=== PATIENT | female | born 1985 | race Caucasian/White ===

== ENCOUNTER 2018-12-05 05:03 | Inpatient (IN) | payer BC ==
--- NOTE | 2018-12-04 12:39 | PCM.LDHP ---
L&D History of Present Illness - General Date of Service: 12/04/18 Admit Problem/Dx: Admission Diagnosis/Problem Admission Diagnosis/Problem 12/04/18 12:32 33-year-old 7 para 3033 white female admitted at 39-0/7 weeks gestational age and MARYJANE of 12/12/2018 for elective repeat section. History of small for gestational age baby Source of Information: Patient History Limitations: Reports: No Limitations - History of Present Illness Introduction:: Allie is a 33-year-old 7 para 3033 white female with an MARYJANE of 2018 is based upon ultrasound on 05/15/2018 at 9-6/7 weeks. Results on 05/01/2018 which also correlated with these dates. She's had multiple ultrasounds which showed that the baby is small for gestational age. She is scheduled for C- section repeat on 12/05/2018. Menses result of in vitro fertilization done in [place]. Seen on a regular basis for early starting at 7 weeks and continuing until present. Her weight gain has been from 128.2 pounds up to approximately 162 pounds. Her vital signs of in stable. Fundal height growth has been lagging somewhat from average. Was given betamethasone on 10/05/2018 in case early delivery was then indicated. She declined genetic testing. Her [place] depression screening score was 0 and scale 30 on 07/26/2018. She has history of hypothyroidism and is presently on medications including levothyroxine 88 g per day. She is clinically euthyroid. She has had weekly BPP's since approximately mid September and these have been reassuring. Last BPP and umbilical cord SD ratio was mildly increased. Laboratory testing in shows a blood type which is O+. At present is negative. First hemoglobin was 11.8 g deciliter and platelets were 373, 000. Potassium was negative. She is rubella immune. Urine culture was negative. TSH at that time was 1.2 4-0 Vicryl as per milliliter. One hour GTT was 98. Second trimester hemoglobin is 10.5 g/dL and platelets were 272,000. Allergies: Ceclor which causes a rash. Medications: 1. Levothyroxine sodium 88 g per day 2. vitamins 1 daily. Past surgical history: 1. Infertility requiring in vitro fertilization 2. Tubal ligation 2009 3. 2016 Past medical history: 1. Hypothyroidism on replacement Family history father has severe scoliosis with vivienne and pins in his back. Mother is alive and well. Father also has hypertension. 2 brothers 1 with hypertension 1 with cerebral palsy. Maternal grandmother is , COPD. Maternal grandfather secondary to liver cancer. Paternal grandmother is alive and well. Paternal grandfather is causes unknown. No anesthesia, bleeding, blood clotting problems noted in the family. Social history: Patient is . She is a homemaker. She and her Vito lived in [place]. She does not use any significant most alcohol, drugs or tobacco. Review of systems: In general patient has no complaints. Baby has been very active. Skin: Negative Lungs: No infectious symptoms or shortness of breath Cardiovascular: No chest pain or exercise intolerance Breasts: No lumps, changes in size, pain, dimpling, discharge or axillary or supraclavicular concerns. GI: Negative : Negative Musculoskeletal: Negative Neurological: Negative - Related Data Allergies/Adverse Reactions: Allergies Allergy/AdvReac Type Severity Reaction Status Date / Time cefaclor [From [facility]] Allergy Rash Verified 04/08/16 19:42 Past Medical History - Past Health History Medical/Surgical History: Denies Medical/Surgical History HERB GROWER History: Reports: , Spontaneous Other OB/BYN History: Tubal in 2009 Social & Family History - Family History Family Medical History: Noncontributory H&P Review of Systems - Review of Systems: Review Of Systems: See Below L&D Exam - Exam Exam: See Below - Patient Data Lab Results Last 24 hrs: Laboratory Results - last 24 hr 12/04/18 12/04/18 Range/Units 10:21 10:21 WBC 8.54 (3.98-10.04) K/mm3 RBC 4.32 (3.98-5.22) M/mm3 Hgb 12.0 (11.2-15.7) gm/L Hct 36.8 (34.1-44.9) % MCV 85.2 (79.4-94.8) fl MCH 27.8 (25.6-32.2) pg MCHC 32.6 (32.2-35.5) g/dl RDW Std Deviation 47.3 H (36.4-46.3) fL Plt Count 171 L (182-369) K/mm3 MPV 11.1 (9.4-12.3) fl Neut % (Auto) 70.4 (34.0-71.1) % Lymph % (Auto) 19.7 (19.3-51.7) % Harney % (Auto) 8.7 (4.7-12.5) % Eos % (Auto) 0.9 (0.7-5.8) Baso % (Auto) 0.1 (0.1-1.2) % Neut # (Auto) 6.01 (1.56-6.13) K/mm3 Lymph # (Auto) 1.68 (1.18-3.74) K/mm3 Harney # (Auto) 0.74 H (0.24-0.36) K/mm3 Eos # (Auto) 0.08 (0.04-0.36) K/mm3 Baso # (Auto) 0.01 (0.01-0.08) K/mm3 Blood Type O POSITIVE Gel Antibody Screen Negative Result Diagrams: 12/04/18 10:21 Problem List Initiated/Reviewed/Updated: Yes Assessment/Plan Comment:: 1. 39-0/7 week interim upon admission for elective repeat certain section. 2. History of small for gestational age baby with testing being normal to this point 3. Rubella titer shows immunity. 4. Patient had betamethasone early in [id number]/20/2018 5. Patient plans to breast-feed. 6. Hypothyroidism, on replacement and clinically euthyroid 7. Patient declined genetic testing Plan: 1. Repeat lower uterine segment transverse section through Pfannenstiel skin incision under spinal block scheduled for 12/05/2018 at 0800 hrs. Procedure, risks, benefits, and his care including attempt at all discussed with patient. She appears understand, wishes to proceed and signed consent. 2. DVT prophylaxis with SCDs 3. Infection prophylaxis with Ancef 2 g IV preop. Patient given a test dose prior to this her only retraction was a rash from Ceclor which occurred when she was a baby. 4. Preoperative evaluation consistent CBC, type and screen. 5. Support breast feeding decision
[~2018-12-05 05:03] MED LIST: Gentamicin 40 MG/ML 2 ML Vial IV SCH; Sodium Chloride 0.9% 10 ML Syringe FLUSH PRN
[2018-12-05] MEDS: Lactated Ringers 1,000 ML IV SCH ×2 (05:37→06:29)
[2018-12-05] MEDS ORDERED: Gentamicin 360 MG in Sodium Chloride 0.9% 100 ML IV ONE ×2 (05:45→06:30)
[2018-12-05] MEDS: Clindamycin Phosphate 900 MG in Sodium Chloride 0.9% 100 ML IV ONE (06:26)
[2018-12-05] MEDS ORDERED: Metoclopramide 10 MG/2 ML SDV IVPUSH ONE (06:30)
[2018-12-05] MEDS ORDERED: Bupivacaine 0.5% 30 ML SDV ONE (06:47)
[2018-12-05] MEDS ORDERED: Phenylephrine 1% 10 MG/ML SDV ONE (07:13)
[2018-12-05] MEDS ORDERED: ceFAZolin 1 GM Vial ONE (07:13)
[2018-12-05] MEDS ORDERED: Morphine PF 10 MG/10 ML SDV ONE (07:13)
[2018-12-05] MEDS: Citric Acid/Sodium Citrate Solution 30 ML Cup PO ONE (07:29)
[2018-12-05] MEDS ORDERED: Oxytocin 10 Units/1 ML SDV ONE (07:57)
[2018-12-05] MEDS ORDERED: Ketorolac 30 MG/ML SDV ONE (08:03)
[2018-12-05] MEDS ORDERED: Lactated Ringers 1,000 ML ONE (08:26)
[2018-12-05] MEDS ORDERED: diphenhydrAMINE 50 MG/ML SDV IVPUSH PRN ×2 (08:37→09:38)
--- NOTE | 2018-12-05 08:41 | PCM.PREANE ---
Preanesthetic Assessment - Anesthesia/Transfusion/Family Hx Anesthesia History: Prior Anesthesia Without Reaction Family History of Anesthesia Reaction: No Transfusion History: No Prior Transfusion(s) - Review of Systems General: No Symptoms Pulmonary: No Symptoms Cardiovascular: No Symptoms Gastrointestinal: No Symptoms Neurological: No Symptoms Other: Reports: None - Physical Assessment NPO Status Date: 12/04/18 NPO Status Time: 22:30 Pulse: 89 O2 Sat by Pulse Oximetry: 96 Respiratory Rate: 16 Blood Pressure: 119/76 Temperature: 36.7 C Vital Signs: Last Vital Signs Temp 36.7 C 12/05/18 05:20 Pulse 89 12/05/18 05:20 Resp 16 12/05/18 05:20 BP 119/76 12/05/18 05:20 Pulse Ox 96 12/05/18 05:20 Height: 1.57 m Weight: 73.709 kg ASA Class: 2 Mental Status: Alert & Oriented x3 Airway Class: Mallampati = 1 Dentition: Reports: Normal Dentition Thyro-Mental Finger Breadths: 3 Mouth Opening Finger Breadths: 3 ROM/Head Extension: Full Lungs: Clear to Auscultation, Normal Respiratory Effort Cardiovascular: Regular Rate, Regular Rhythm - Lab Values: Laboratory Last Values WBC 8.54 K/mm3 (3.98-10.04) 12/04/18 10:21 RBC 4.32 M/mm3 (3.98-5.22) 12/04/18 10:21 Hgb 12.0 gm/L (11.2-15.7) 12/04/18 10:21 Hct 36.8 % (34.1-44.9) 12/04/18 10:21 MCV 85.2 fl (79.4-94.8) 12/04/18 10:21 MCH 27.8 pg (25.6-32.2) 12/04/18 10:21 MCHC 32.6 g/dl (32.2-35.5) 12/04/18 10:21 RDW Std Deviation 47.3 fL (36.4-46.3) H 12/04/18 10:21 Plt Count 171 K/mm3 (182-369) L 12/04/18 10:21 MPV 11.1 fl (9.4-12.3) 12/04/18 10:21 Neut % (Auto) 70.4 % (34.0-71.1) 12/04/18 10:21 Lymph % (Auto) 19.7 % (19.3-51.7) 12/04/18 10:21 Blount % (Auto) 8.7 % (4.7-12.5) 12/04/18 10:21 Eos % (Auto) 0.9 (0.7-5.8) 12/04/18 10:21 Baso % (Auto) 0.1 % (0.1-1.2) 12/04/18 10:21 Neut # (Auto) 6.01 K/mm3 (1.56-6.13) 12/04/18 10:21 Lymph # (Auto) 1.68 K/mm3 (1.18-3.74) 12/04/18 10:21 Blount # (Auto) 0.74 K/mm3 (0.24-0.36) H 12/04/18 10:21 Eos # (Auto) 0.08 K/mm3 (0.04-0.36) 12/04/18 10:21 Baso # (Auto) 0.01 K/mm3 (0.01-0.08) 12/04/18 10:21 Blood Type O POSITIVE 12/04/18 10:21 Gel Antibody Screen Negative 12/04/18 10:21 - Allergies Allergies/Adverse Reactions: Allergies Allergy/AdvReac Type Severity Reaction Status Date / Time cefaclor [From [facility]] Allergy Rash Verified 12/05/18 04:21 - Anesthesia Plan Pre-Op Medication Ordered: None - Acknowledgements Anesthesia Type Planned: Spinal Pt an Appropriate Candidate for the Planned Anesthesia: Yes Alternatives and Risks of Anesthesia Discussed w Pt/Guardian: Yes Pt/Guardian Understands and Agrees with Anesthesia Plan: Yes PreAnesthesia Questionnaire - Past Health History Medical/Surgical History: Denies Medical/Surgical History Gastrointestinal History: Reports: GERD [employer] History: Reports: , Spontaneous Other OB/BYN History: Tubal in 2009 Psychiatric History: Reports: Depression Endocrine/Metabolic History: Reports: Hypothyroidism - Past Surgical History Female Surgical History: Reports: Section, Tubal Ligation Endocrine Surgical History: Reports: None - SUBSTANCE USE Smoking Status *Q: Never Smoker Tobacco Use Within Last Twelve Months: No Second Hand Smoke Exposure: No Recreational Drug Use History: No - HOME MEDS Home Medications: Home Meds Levothyroxine Sodium 88 mcg PO DAILY 12/05/18 [History] Pnv No.122/Iron/Folic Acid [ Multi Tablet] 1 each PO DAILY 12/05/18 [ History] - CURRENT (IN HOUSE) MEDS Current Meds: Current Medications Diphenhydramine HCl (Benadryl) 25 mg IVPUSH Q6H PRN PRN Reason: Itching Lactated Ringer's (Ringers, Lactated) 1,000 mls @ 125 mls/hr IV ASDIRECTED [facility] Last Admin: 12/05/18 06:29 Dose: 125 mls/hr Oxytocin 20 unit/ Lactated (Ringer's) 1,002 mls @ 999 mls/hr IV ASDIRECTED [facility] Levothyroxine Sodium (Synthroid) 88 mcg PO DAILY [facility] Non-Formulary Medication (Pnv No.122/Iron/Folic Acid [ Multi Tablet]) 1 each PO DAILY [facility] Sodium Chloride (Saline Flush) 10 ml FLUSH ASDIRECTED PRN PRN Reason: Keep Vein Open Discontinued Medications Bupivacaine HCl (Marcaine 0.5%) Confirm Administered Dose 30 ml .ROUTE .STK-MED ONE Stop: 12/05/18 06:48 Cefazolin Sodium (Ancef) Confirm Administered Dose 2 gm .ROUTE .STK-MED ONE Stop: 12/05/18 07:14 Citric Acid/Sodium Citrate (Bicitra Solution) 30 ml PO ONETIME ONE Stop: 12/05/18 06:31 Last Admin: 12/05/18 07:29 Dose: 30 ml Gentamicin Sulfate (Gentamicin) 0 mg IV .Pharmacy to Dose [facility] Clindamycin Phosphate 900 mg/ (Sodium Chloride) 106 mls @ 100 mls/hr IV ONETIME ONE Stop: 12/05/18 08:03 Last Admin: 12/05/18 06:26 Dose: 100 mls/hr Gentamicin Sulfate 360 mg/ (Sodium Chloride) 109 mls @ 218 mls/hr IV ONETIME ONE Stop: 12/05/18 06:59 Last Admin: 12/05/18 07:27 Dose: 218 mls/hr Lactated Ringer's (Ringers, Lactated) Confirm Administered Dose 1,000 mls @ as directed .ROUTE .STK-MED ONE Stop: 12/05/18 08:27 Ketorolac Tromethamine (Toradol) Confirm Administered Dose 30 mg .ROUTE .STK- MED ONE Stop: 12/05/18 08:04 Metoclopramide HCl (Reglan) 10 mg IVPUSH ONETIME ONE Stop: 12/05/18 06:31 Last Admin: 12/05/18 07:24 Dose: 10 mg Morphine Sulfate (Duramorph Pf) Confirm Administered Dose 10 mg .ROUTE .STK-MED ONE Stop: 12/05/18 07:14 Oxytocin (Pitocin) Confirm Administered Dose 10 unit .ROUTE .STK-MED ONE Stop: 12/05/18 07:58 Phenylephrine HCl (Damian-Synephrine) Confirm Administered Dose 10 mg .ROUTE .STK- MED ONE Stop: 12/05/18 07:14
--- NOTE | 2018-12-05 08:42 | PCM.POSTAN ---
POST ANESTHESIA ASSESSMENT - MENTAL STATUS Mental Status: Alert, Oriented - VITAL SIGNS Pulse Rate: 91 SaO2: 100 Resp Rate: 19 Blood Pressure: 131/114 Temperature: 36.6 C - RESPIRATORY Respiratory Status: Respiratory Rate WNL, Airway Patent, O2 Saturation Stable - CARDIOVASCULAR CV Status: Pulse Rate WNL, Blood Pressure Stable - GASTROINTESTINAL GI Status: No Symptoms - PAIN Pain Score: 0 - POST OP HYDRATION Hydration Status: Adequate & Stable - OBSERVATIONS Free Text/Narrative:: no anesthesia complications noted
--- NOTE | 2018-12-05 08:44 | PCM.OPNOTE ---
- General Post-Op/Procedure Note Date of Surgery/Procedure: 12/05/18 Operative Procedure(s): Repeat lower uterine segment transversely in section through Turner skin incision, revision of skin scar. Findings: Uterus tubes and ovaries consistent with term . Baby in vertex presentation. Amniotic fluid is clear. There is more 0757 hrs. scores 8 and 9. Weight was 6 lbs. 3 oz. (2800 g). Female infant. Pre Op Diagnosis: 1. 39-0/7 week intrauterine , history of previous section with desire for repeat section Post-Op Diagnosis: Same with delivery of viable, childs, female with Apgars of 8 and 9, weight 6 lbs. 3 oz. (2800 g) at 0757 hrs. on 12/05/2018. Anesthesia Technique: Epidural Other Anesthesia Type: Marcaine 0.5%20 mL totallocal Primary Surgeon: Anthony Johnson Secondary Surgeon: Suleman Espinal Anesthesia Provider: Eliazar Nguyen Tenter Feeder: Micheal Brink Reason Tenter Feeder Was Necessary: Retraction, assistance, patient safety and quality of care Role of Tenter Feeder: Same Fluid Replacement, Intraop: 2,600 Output, Urine Amount: 30 EBL in mLs: 700 Drain/Tube Comments:: Indwelling bladder catheter Complications: None Condition: Good Free Text/Narrative:: Surgery duration: 29 minutes Procedure: The patient is appropriately consented. Patient was transferred to the room and placed in a sitting position. Spinal anesthesia was administered. After confirmation of adequate anesthesia patient was placed in a supine position with a wedge under her right side to facilitate left lateral positioning. The patient was prepped and draped in usual fashion after Cox catheter was already placed . The anesthetic was checked and found to be adequate. 20 mL of Marcaine 0.5% was injected locally in the Pfannenstiel incision site. The Pfannenstiel skin incision was then made directly taking out the old scar and carried down through skin, subcutaneous and fascial layers. The fascia was then undermined superiorly and inferiorly to allow for adequate operating room. The recti muscles midline and preperitoneal fat was bluntly dissected. Peritoneal cavity was entered longitudinally. The vesicouterine peritoneum was then incised transversely and bladder flap was developed. Myometrium was incised transversely to the level of the amniotic sac. This incision was extended bilaterally in a blunt fashion. The amniotic sac was then ruptured resulting in clear amniotic fluid. A hand is placed in the low uterine segment and the baby's head was brought forth through the incision. The baby was completely delivered using fundal pressure in a routine fashion. The nose and mouth were bulb suctioned. Baby's cord was clamped x2 cut and baby was handed off to attending immunology specialist Dr Springer. Placenta was expressed after cord blood was obtained. Uterus was then exteriorized to allow for easier closure. The cervix was assessed and found to be dilated adequately to allow egress of blood. The uterus was closed in 2 layers. The first layer a running locked suture of 0 Monocryl, the second layer a running locked vertical mattress suture of 0 Monocryl. Bhzwdu-fa-suumb suture was placed at mid incision to control 1 bleeder. Hemostasis confirmed at this time. Sponge instrument needle counts are correct. The uterus was returned to the abdominal cavity and lateral gutters were cleared of blood. Once again sponge needle counts are correct. The anterior abdominal wall was closed with a #1 PDS suture from angle to angle. The subcutaneous area was found to be free of any bleeders. interrupted sutures of 3-0 Monocryl were used to reapproximate the subcutaneous layer.Skin was closed with a running subcuticular stitch of 3-0 Monocryl in a vertical mattress suture fashion using a Eliseo needle. Prineo mesh /glue was then applied to further approximate the incision. It should be noted that patient received clindamycin and gentamicin were given preoperatively for infection prophylaxis and had Pitocin infused after delivery of the placenta to facilitate uterine contraction. She also had sequential compression stockings in place for DVT prophylaxis. Patient was discharged from the operating room in satisfactory condition.
[2018-12-05] MEDS ORDERED: Meperidine 50 MG/ML Vial IVPUSH SCH (08:45)
[2018-12-05] MEDS ORDERED: Naloxone 0.4 MG/ML SDV IVPUSH PRN (09:38)
[2018-12-05] MEDS ORDERED: ePHEDrine 50 MG/ML SDV IVPUSH PRN (09:38)
[2018-12-05] MEDS ORDERED: Lanolin 100% Cream 7 GM Tube TOP PRN (09:38)
[2018-12-05] MEDS: Dextrose 5%-Lactated Ringers 1,000 ML IV SCH ×2 (10:15→13:30)
[2018-12-05] MEDS ORDERED: Sodium Chloride 0.9% 1,000 ML IV ONE ×2 (10:52→16:08)
[2018-12-05] MEDS ORDERED: Sodium Chloride 0.9% 1,000 ML ONE (10:55)
[2018-12-05] MEDS ORDERED: Dextrose 5%-Lactated Ringers 1,000 ML ONE (11:32)
--- NOTE | 2018-12-05 12:57 | US ---
Limited abdominal ultrasound: Multiple screening images were obtained of the 4 quadrants of the abdomen looking for free fluid. Small amount of fluid is seen within the right upper quadrant measuring 7.1 x 2.1 x 3.3 cm. Smaller collection of fluid is seen within the left upper quadrant measuring 3.2 x 2.0 x 0.7 cm. No other focal fluid collections are seen. Impression: 1. Nonspecific fluid collections within both upper quadrants as noted above. Diagnostic code #3
[2018-12-05] MEDS: Ibuprofen 800 MG Tab PO SCH (16:34)
[2018-12-05] MEDS ORDERED: Dextrose 5%-Lactated Ringers 1,000 ML IV SCH (17:00)
[2018-12-05] MEDS ORDERED: Sodium Chloride 0.9% 500 ML ONE (19:39)
[2018-12-05] MEDS ORDERED: Tranexamic Acid 1,000 MG in Sodium Chloride 0.9% 100 ML IV ONE (20:30)
--- NOTE | 2018-12-05 20:38 | PCM.SN ---
- Free Text/Narrative Note: The patient's clinical condition has been monitored throughout the afternoon and evening. I was initially called because of increased pulse and decreased urine output. 11 at about noon was 8.3. Is clinically doing reasonably well. Her pulse was mildly elevated in the low 100s. Her output was less than desired. Patient did appear somewhat dry and some IV fluid bolus was given. 600 mL initially. Repeat blood test done at 1500 hrs. was 7.9. Patient's uterus is firm and incision appears to be intact small amount of serous losing from mid section. Ultrasound was done to evaluate for fluid in the abdominal cavity. A strip of fluid was noted in the right upper quadrant 2 x 3 x 7 cm. Suspected 40-50 mL. Amount in the left upper quadrant. Possibly normal physiologic months after C- section. Her type and crossmatch 2 units on the patient at this time. With fluid bolus the urine output increased slightly and is within normal limits. A follow-up CBC done at 1900 hrs. has returned at 6.7 g/L. Patient has an increased amount of right shoulder discomfort. Abdomen is soft and relatively nontender. Uterus is just below the belly button. Assessment: 1. Status post the same with decreasing hemoglobin, increasing pulse and some mild symptomatology including right shoulder pain possibly indicating possible postoperative abdominal hemorrhage. Plan: 1. Will do dose of transexamic acid per protocol. 2. Proceed with CT of the abdomen and pelvis with IV contrast. 3. Exploratory laparotomy if blood is found on CT.
[2018-12-05] MEDS: Acetaminophen/oxyCODONE 325-5 MG Tab PO PRN (20:39)
--- NOTE | 2018-12-05 22:18 | PCM.SN ---
- Free Text/Narrative Note: CT of the abdomen done in evaluation of clinical symptoms and signs of possible intraperitoneal bleeding shows the following impression: There is a large, vascular uterus. Anterior abdominal wall around the surgical site has many foci of soft tissue gas as well as some infiltrative hematoma in the rectus muscles. There is a small amount of hemoperitoneum. There is a small amount of free intraperitoneal air. There is a small amount of hematoma in the preperitoneal space anterior to the urinary bladder. Patient is clinically doing well. Her blood pressure is normal. Pulse is still mildly elevated. She is received 1 unit of packed red blood cells and is receiving her second unit at this time. She is ambulated reasonably well. Pain control is adequate. Assessment: Day of surgery with decreasing hemoglobin, increased pulse obtaining a CT done which shows minimal blood in the peritoneal cavity and minimal possible blood in the anterior abdominal wall. Etiology of her drop in hemoglobin possibly a combination of saturated blood at the time of her 12.0 hemoglobin preoperatively along with 2600 mL of fluids intraoperatively combined with a 700 mL blood loss at the time of and possibly small amount of blood loss from the uterus postoperatively. This patient is clinically stable we'll recommend that we can monitor her clinical situation closely and reevaluate with blood count after 2 units of blood. Patient appears to be in agreement with this plan.
[2018-12-06] MEDS: Ibuprofen 800 MG Tab PO SCH ×4 (00:37→16:01)
[2018-12-06] MEDS: Simethicone 80 MG Tab.Chew PO SCH ×5 (00:37→20:34)
[2018-12-06] MEDS: Levothyroxine 88 MCG Tab PO SCH (06:57)
[2018-12-06] MEDS: Acetaminophen/oxyCODONE 325-5 MG Tab PO PRN ×2 (06:58→20:33)
--- NOTE | 2018-12-06 07:11 | CT ---
CT abdomen and pelvis Technique: Multiple axial sections were obtained from above the dome of the diaphragm inferiorly through the pubic symphysis. Intravenous contrast was utilized. No oral contrast has been given. Delayed images were obtained through the abdomen and pelvis. Comparison: Previous limited abdominal ultrasound performed earlier on the same day (11:53 AM). Findings: Slight atelectasis is noted within the left lung base. Liver shows no focal abnormality. Spleen appears within normal limits. Small amount of fluid is seen off the inferior tip of the liver as well as within the paracolic gutters on both sides. Small amount of fluid is seen within the pelvis. There is thickening of both rectus muscles within the lower abdomen with multiple smaller areas of soft tissue air compatible with previous surgery and intramuscular hematomas. Other areas of scattered soft tissue air are seen in this region. Uterus is enlarged presumably . Increased vessels are noted within the anterior aspect of the uterus. Cox catheter noted within the bladder. Aorta shows no aneurysm. Kidneys show symmetric contrast enhancement. Left kidney shows a small cyst. Delayed imaging shows contrast excretion into both ureters which showed no obstruction or dilatation. Contrast is noted within the bladder. Appendix not definitely visualized. Impression: 1. Small amount of fluid off the inferior tip of the liver as well as extending down both paracolic gutters into the pelvis. 2. Thickened rectus muscles compatible with intramuscular hematoma. Small amount of air scattered within the rectus muscles as well as adjacent soft tissues presumably postsurgical. 3. Enlarged and vascular uterus. 4. Other incidental findings. Diagnostic code #3 I agree with preliminary report from [facility], finalized on 12/05/18, 10:53 PM Central Time
[2018-12-06] MEDS: Prenatal Multivitamin with Calcium/Folic Acid/Iron Tab PO SCH (08:45)
--- NOTE | 2018-12-06 09:06 | PCM.SN ---
- Free Text/Narrative Note: Clinical signs and sx are stable this am. Patient has been up without problems. No bleeding noted. Afeb. Pulse has normalized. Bp ok Lungs-clear CV-RRR Abdomen-minimal BS. Incision dry and intact. No hematomas, seroma or abscess present. Eccchymosis present Legs NT, minimal edema Hb 8.7- stable from last night Assessment: POD #1 stable Plan: Monitor clinically Increase diet and activity. DC IV
[2018-12-06] MEDS: Clindamycin Phosphate 900 MG in Sodium Chloride 0.9% 100 ML IV ONE (20:17)
[2018-12-07] MEDS: Ibuprofen 800 MG Tab PO SCH ×4 (01:29→23:57)
[2018-12-07] MEDS: Simethicone 80 MG Tab.Chew PO SCH ×5 (03:15→22:18)
[2018-12-07] MEDS: Levothyroxine 88 MCG Tab PO SCH (06:39)
[2018-12-07] MEDS: Prenatal Multivitamin with Calcium/Folic Acid/Iron Tab PO SCH (08:29)
[2018-12-07] MEDS: Docusate Sodium 100 MG Cap PO PRN ×2 (08:46→22:18)
[2018-12-08] MEDS: Levothyroxine 88 MCG Tab PO SCH (06:51)
[2018-12-08] MEDS: Simethicone 80 MG Tab.Chew PO SCH (06:51)
--- NOTE | 2018-12-08 08:04 | PCM.DCSUM1 ---
Discharge Summary - Hospital Course Free Text/Narrative:: Allie is a 33-year-old multigravida white female who delivered 3 days ago by repeat section. She delivered a 6 lbs. 3 oz. female with Apgars of 8 and 9 at 0757 hrs. on 12/05/2018. Surgery was unremarkable but shortly after surgery patient's pulse 1 up into the one teens and her urine output was low. CBC was done and showed that her hemoglobin had dropped to 8.9. Patient given a bolus of fluids and was rechecked some time later which time her hemoglobin dropped into the 70s. Ultrasound was done to look for potential bleeding in the abdominal cavity. A small amount of blood/fluid was noted in the right hepatic area but did not appear to be enough to warrant the drop in hemoglobin. We continued watching her hemoglobin dropped yet further. I CAT scan was performed and showed no significant intra-abdominal hemorrhage. At the same time as CAT scan was ordered patient was treated with transaxamic acid. In that point on patient was monitored. She did receive 2 units of packed red blood cells and her hemoglobin increased to 8.9. Throughout this whole time other than her pulse being high she was clinically stable. The only symptom that she had was some very mild right shoulder discomfort. Hemoglobin the next a.m. was 8.7 indicating instability. Patient is doing well clinically and she is ambulating well, nursing without problems and had minimal lochia. Her vital signs normalized. She did well throughout the rest of the hospital course. She is desiring to be discharged today. Diagnosis: Stroke: No - Discharge Data Discharge Date: 12/08/18 Discharge Disposition: Home, Self-Care 01 Condition: Good - Patient Summary/Data Operative Procedure(s) Performed: Repeat lower uterine segment transversely in section through Turner skin incision, revision of skin scar. - Patient Instructions Diet: Regular Diet as Tolerated (Nursing diet with increased calories and calcium is recommended) Activity: As Tolerated (No intercourse or tampons until seen back. No lifting greater than 15 pounds or driving a car 1 week.) Driving: Do Not Drive (1 week) Showering/Bathing: May Shower Wound/Incision Care: Keep Operative Site/Wound Site Clean and Dry Notify Provider of: Fever, Increased Pain, Swelling and Redness, Drainage, Nausea and/or Vomiting - Discharge Plan Home Medications: Home Meds Levothyroxine Sodium 88 mcg PO DAILY 12/05/18 [History] Acetaminophen/oxyCODONE [Percocet 325-5 MG] 2 tab PO Q4H PRN tablet 12/08/18 [ Rx] Ibuprofen [Motrin] 800 mg PO Q8H tablet 12/08/18 [Rx] Vit with Ca/FA/Iron [ Plus Iron] 1 each PO DAILY tablet [Rx] Referrals: Anthony Johnson MD [Family Provider] - (Return to clinicDr. Johnson2 weeks.) - Discharge Summary/Plan Comment DC Time >30 min.: No Discharge Summary/Plan Comment: Discharge instructions: 1. Discharge home 2. Diet, activity and follow-up discussed with patient. Recommend nursing diet with increased calories and calcium. 3. Precautions given concern increased pain, bleeding, temperature, signs/ symptoms of DVT/PE. 4. Medications per home medication was printed, discussed with and given to the patient. 5. Return to clinic-Dr. Johnson-[facility] in 2 weeks. Diagnosis: Term -delivered Condition: Good - Patient Data Vitals - Most Recent: Last Vital Signs Temp 37.2 C 12/08/18 03:41 Pulse 89 12/08/18 03:41 Resp 16 12/08/18 03:41 BP 118/68 12/08/18 03:41 Pulse Ox 96 12/08/18 03:41 Weight - Most Recent: 73.709 kg I&O - Last 24 hours: Intake & Output 12/07/18 12/08/18 12/08/18 22:59 06:59 14:59 Intake Total 220 Balance 220 Med Orders - Current: Current Medications Diphenhydramine HCl (Benadryl) 25 mg IVPUSH Q6H PRN PRN Reason: Itching Diphenhydramine HCl (Benadryl) 25 mg IVPUSH Q6H PRN PRN Reason: Itching or Nausea Docusate Sodium (Colace) 100 mg PO BID PRN PRN Reason: Constipation Last Admin: 12/07/18 22:18 Dose: 100 mg Emollient Ointment (Lansinoh Hpa) 0 gm TOP ASDIRECTED PRN PRN Reason: Sore Nipples Ephedrine Sulfate (Ephedrine Sulfate) 5 mg IVPUSH SEECOMMENT PRN PRN Reason: Other Dextrose/Lactated Ringer's (Dextrose 5%-Lactated Ringers) 1,000 mls @ 150 mls/ hr IV ASDIRECTED [facility] Last Admin: 12/05/18 16:55 Dose: 150 mls/hr Ibuprofen (Motrin) 800 mg PO Q8H [facility] Last Admin: 12/07/18 23:57 Dose: 800 mg Levothyroxine Sodium (Synthroid) 88 mcg PO DAILY@0600 [facility] Last Admin: 12/08/18 06:51 Dose: 88 mcg Naloxone HCl (Narcan) 0.1 mg IVPUSH SEECOMMENT PRN PRN Reason: Respiratory Depression Oxycodone/Acetaminophen (Percocet 325-5 Mg) 2 tab PO Q4H PRN PRN Reason: Pain (moderate 4-6) Last Admin: 12/06/18 20:33 Dose: 2 tab Prenat Multivit/Survey Manager/Iron/Folic Ac ( Plus Iron) 1 each PO DAILY [facility] Last Admin: 12/07/18 08:29 Dose: 1 each Simethicone (Simethicone) 80 mg PO QIDACANDBED [facility] Last Admin: 12/08/18 06:51 Dose: 80 mg Discontinued Medications Bupivacaine HCl (Marcaine 0.5%) Confirm Administered Dose 30 ml .ROUTE .STK-MED ONE Stop: 12/05/18 06:48 Last Admin: 12/05/18 07:53 Dose: 20 ml Cefazolin Sodium (Ancef) Confirm Administered Dose 2 gm .ROUTE .STK-MED ONE Stop: 12/05/18 07:14 Citric Acid/Sodium Citrate (Bicitra Solution) 30 ml PO ONETIME ONE Stop: 12/05/18 06:31 Last Admin: 12/05/18 07:29 Dose: 30 ml Gentamicin Sulfate (Gentamicin) 0 mg IV .Pharmacy to Dose [facility] Clindamycin Phosphate 900 mg/ (Sodium Chloride) 106 mls @ 100 mls/hr IV ONETIME ONE Stop: 12/05/18 08:03 Last Admin: 12/06/18 20:17 Dose: Not Given Lactated Ringer's (Ringers, Lactated) 1,000 mls @ 125 mls/hr IV ASDIRECTED [facility] Last Admin: 12/05/18 06:29 Dose: 125 mls/hr Oxytocin 20 unit/ Lactated (Ringer's) 1,002 mls @ 999 mls/hr IV ASDIRECTED [facility] Gentamicin Sulfate 360 mg/ (Sodium Chloride) 109 mls @ 218 mls/hr IV ONETIME ONE Stop: 12/05/18 06:59 Last Admin: 12/05/18 07:27 Dose: 218 mls/hr Lactated Ringer's (Ringers, Lactated) Confirm Administered Dose 1,000 mls @ as directed .ROUTE .ST-MED ONE Stop: 12/05/18 08:27 Dextrose/Lactated Ringer's (Dextrose 5%-Lactated Ringers) 1,000 mls @ 150 mls/ hr IV ASDIRECTED [facility] Stop: 12/05/18 16:17 Last Admin: 12/05/18 13:30 Dose: 125 mls/hr Sodium Chloride (Normal Saline) 1,000 mls @ 999 mls/hr IV ONETIME ONE Stop: 12/05/18 11:52 Last Admin: 12/05/18 10:58 Dose: 999 mls/hr Sodium Chloride (Normal Saline) Confirm Administered Dose 1,000 mls @ as directed .ROUTE .[facility]-MED ONE Stop: 12/05/18 10:56 Last Admin: 12/05/18 13:35 Dose: Not Given Dextrose/Lactated Ringer's (Dextrose 5%-Lactated Ringers) Confirm Administered Dose 1,000 mls @ as directed .ROUTE .[facility]-MED ONE Stop: 12/05/18 11:33 Last Admin: 12/05/18 13:35 Dose: Not Given Sodium Chloride (Normal Saline) 1,000 mls @ 999 mls/hr IV ONETIME ONE Stop: 12/05/18 17:08 Last Admin: 12/05/18 16:24 Dose: 999 mls/hr Sodium Chloride (Normal Saline) Confirm Administered Dose 500 mls @ as directed .ROUTE .[facility]-MED ONE Stop: 12/05/18 19:40 Last Admin: 12/06/18 13:04 Dose: Not Given Tranexamic Acid 1,000 mg/ (Sodium Chloride) 110 mls @ 440 mls/hr IV ONETIME ONE Stop: 12/05/18 20:44 Last Admin: 12/06/18 20:18 Dose: Not Given Ibuprofen (Motrin) 800 mg PO Q8H [facility] Last Admin: 12/06/18 13:03 Dose: Not Given Ketorolac Tromethamine (Toradol) Confirm Administered Dose 30 mg .ROUTE .STK- MED ONE Stop: 12/05/18 08:04 Meperidine HCl (Meperidine) 12.5 mg IVPUSH ONETIME [facility] Stop: 12/05/18 18:00 Last Admin: 12/05/18 08:54 Dose: 12.5 mg Metoclopramide HCl (Reglan) 10 mg IVPUSH ONETIME ONE Stop: 12/05/18 06:31 Last Admin: 12/05/18 07:24 Dose: 10 mg Morphine Sulfate (Duramorph Pf) Confirm Administered Dose 10 mg .ROUTE .STK-MED ONE Stop: 12/05/18 07:14 Oxytocin (Pitocin) Confirm Administered Dose 10 unit .ROUTE .STK-MED ONE Stop: 12/05/18 07:58 Phenylephrine HCl (Damian-Synephrine) Confirm Administered Dose 10 mg .ROUTE .STK- MED ONE Stop: 12/05/18 07:14 Sodium Chloride (Saline Flush) 10 ml FLUSH ASDIRECTED PRN PRN Reason: Keep Vein Open Tranexamic Acid (Cyklokapron) Confirm Administered Dose 1,000 mg .ROUTE .STK- MED ONE Stop: 12/05/18 20:18 Last Admin: 12/06/18 00:33 Dose: Not Given Tranexamic Acid (Cyklokapron) 1,000 mg IVPUSH ONETIME ONE Stop: 12/05/18 20:33 Last Admin: 12/05/18 20:41 Dose: 1,000 mg
[2018-12-08] MEDS: Prenatal Multivitamin with Calcium/Folic Acid/Iron Tab PO SCH (08:35)
[2018-12-08] MEDS: Ibuprofen 800 MG Tab PO SCH (08:35)
[2018-12-08 10:43] VITALS: BP 120/77
== END 2018-12-08 10:59 | disposition home or self-care (01) | DRG 540 ==
LOC: JD.OB 05:03
PROVIDERS: ADMIT Obstetrics & Gynecology; ATTEND Obstetrics & Gynecology
PROC: 10D00Z1 Extraction of Products of Conception, Low, Open Approach (ICD-10-PCS; principal; 2018-12-05)
PROC: 6A550ZT Pheresis of Cord Blood Stem Cells, Single (ICD-10-PCS; principal; 2018-12-05)
PROC: 30233N1 Transfusion of Nonautologous Red Blood Cells into Peripheral Vein, Percutaneous Approach (ICD-10-PCS; 2018-12-05)
DX: O34.211 Maternal care for low transverse scar from previous cesarean delivery (principal); Z37.0 Single live birth; N85.8 Other specified noninflammatory disorders of uterus; Z3A.39 39 weeks gestation of pregnancy; O99.284 Endocrine, nutritional and metabolic diseases complicating childbirth; E03.9 Hypothyroidism, unspecified; O90.2 Hematoma of obstetric wound; O99.344 Other mental disorders complicating childbirth; F32.9 Major depressive disorder, single episode, unspecified; Z88.1 Allergy status to other antibiotic agents; Z79.899 Other long term (current) drug therapy
CPT/HCPCS: 01961; 36415; 36430; 59025; 74177; 74177-26; 76705; 76705-26; 85025; 86592; 86850; 86900; 86901; 86922; A9270-GY; J0690; J1580; J1885; J2175; J2270; J2370; J2590; J2765; J3490; J7030; J7040; J7042; J7120; P9016